=== PATIENT | female | born 1980 | race Caucasian/White ===

== ENCOUNTER 2018-11-15 00:44 | Emergency (ER) | payer MEDICAID, OTHER ==
[~2018-11-15] VITALS: Wt 94.8 kg
[2018-11-15] MEDS ORDERED: SOD CHLORIDE 0.9% 1,000 ML IV STA (00:59)
[2018-11-15] MEDS ORDERED: morphine 4 MG/ML VIAL IV STA ×2 (00:59→03:44)
[2018-11-15] MEDS ORDERED: ONDANSETRON 4 MG INJ IV STA (00:59)
[2018-11-15] MEDS ORDERED: IBUP800T48 PO (01:03)
[2018-11-15] MEDS ORDERED: HYDR-4011 PO (01:03)
--- NOTE | 2018-11-15 01:03 | ERD ---
ER Documentation Chief Complaint Chief Complaint LOWER RIGHT BACK PAIN WOKE PT FROM SLEEP, DENIES DYSURIA HPI 38-year-old female presents with right-sided back pain that radiates to her rig ht abdomen that began tonight. The pain awoke her from sleep. No fever. No nausea or vomiting or diarrhea. Pain is moderate to severe. Has not taken any medication for pain. No trauma. She is ambulatory. ROS All systems reviewed and are negative except as per history of present illness. Allergies Allergies: Coded Allergies: No Known Allergy (Unverified , 11/15/18) FmHx Family History: No diabetes Physical Exam Vitals Vital Signs Date Temp Pulse Resp B/P (MAP) Pulse Ox O2 O2 Flow FiO2 Time Delivery Rate 11/15/18 97.5 64 18 143/81 99 00:48 (101) Physical Exam INITIAL VITAL SIGNS: Reviewed by me GENERAL: Awake, alert and oriented x 4, well appearing, nontoxic, speaking in full sentences. No acute distress HEAD: Atraumatic RESPIRATORY: Clear to auscultation bilaterally. Symmetric chest wall rise. No wheezing or rales. No accessory muscle use. CV: Regular rate and rhythm. No murmurs, rubs, or gallops. ABDOMEN: Soft, non-distended. Nontender. Negative Murdo. Negative McBurneys point tenderness. No CVA tenderness bilaterally. No guarding. No rebound. Back Exam: Compartments: Soft Motor: Normal flexion and extension of bilateral hip/knee/ankle/foot Sensation: Intact to light touch throughout Bones: No midline TTP Procedures/MDM Patient presents with pain in his questionable whether it is her back, flank, or right side of her abdomen. She does appear to be in mild discomfort secondary to the pain. She was given IV fluids Zofran and morphine. Abdominal labs and CT scan ordered which are pending at the end of my shift and the next provider will dictate an addendum with results. Departure Diagnosis: Primary Impression: Back pain Additional Impression: Abdominal pain Condition: Stable JAQUELINE SHORT PA-C November 15, 2018 01:03
[2018-11-15 03:40] VITALS: BP 120/81; PULSE 53; RESP 18
[2018-11-15] MEDS ORDERED: OXYC-279 PO (03:40)
[2018-11-15] MEDS ORDERED: TAMS-14 PO (03:41)
[2018-11-15] MEDS ORDERED: KETOROLAC 30 MG INJ IV STA (03:45)
== END 2018-11-15 03:57 | disposition home or self-care (01) ==
LOC: FTE 00:44
DX: M54.5 Low back pain (principal); R10.9 Unspecified abdominal pain
CPT/HCPCS: 36415; 74176; 80053; 81001; 81025; 83690; 85025; 96361; 96374; 96375; 96376; J1885; J2270; J2405; J7030; Z7502